=== PATIENT | female | born 1950 | race Caucasian/White ===

== ENCOUNTER 2022-06-23 12:46 | Outpatient (CLI) | payer MEDICARE, SELFPAY ==
--- NOTE | 2022-06-23 13:00 | CRLHL7_ITS ---
For Patients: As a result of the Century Cures Act, medical imaging exams and procedure reports are released immediately into your electronic medical record. You may view this report before your referring provider. If you have questions, please contact your health care provider. DXA BONE MINERAL DENSITY STUDY Current height (in): 61.0. Weight (lb): 117.0. Menopause age: 50. Ethnicity: White. Reason for exam: Postmenopausal. History of lymphoma. 1. Have you had a previous hip or vertebral fracture? No. 2. Have you had any fractures during your adult life which did not result from significant trauma (e.g., auto accident)? No. 3. Did either of your parents have a hip fracture? No. 4. Do you smoke? No. 5. Have you ever taken Glucocorticoids? No. 6. Do you have rheumatoid arthritis? No. 7. Do you have secondary osteoporosis? No. 8. Do you drink 3 or more alcoholic drinks per day? No. 9. Are you being treated for osteoporosis? No. 10. Have you ever taken any of the following medications: Actonel, Evista, Fosamax, Miacalcin, Reclast, Boniva, Forteo, HRT (i.e. estrogen/hormone therapy), Protelos, Prolia, Vitamin D, Calcium, other ??? please specify. ANSWER: Yes, vitamin D. 11. Do you have any of the following medical conditions: Anorexia or bulimia, asthma or emphysema, end stage renal disease, hyperparathyroidism, any seizure disorders, cancer, inflammatory bowel diseases, hysterectomy, other ??? please specify. ANSWER: Yes, cancer, hysterectomy. 12. What was your maximum height (inches)? 61. 13. Do you perform weight bearing exercise regularly? Yes. 14. Do you regularly consume dairy products? Yes. 15. Do you drink caffeinated beverages? Yes. If female: 16. At what age did your period start? 13. 17. Are you premenopausal? No. 18. How many full term pregnancies have you had? 2. 19. Have you ever missed your period for more than 6 months in a row (not including or menopause)? No. TECHNIQUE: Bone mineral density study was performed using the [employer]. FINDINGS: The results of the study expressed as bone mineral density (BMD) are as follows: Lumbar spine L1 to L4: BMD: 1.114 g/cm2. T-score: 0.6. Z-score: 2.8. Neck Left: BMD: 0.816 g/cm2. T-score: -0.3. Z-score: 1.6. Right: BMD: 0.860 g/cm2. T-score: 0.1. Z-score: 2.0. Total Left: BMD: 0.927 g/cm2. T-score: -0.1. Z-score: 1.5. Right: BMD: 0.938 g/cm2. T-score: -0.0. Z-score: 1.6. IMPRESSION: Normal bone density. Alton Bates M.D. Diagnostic Radiologist [email or web address] Transcribed: 8:44 a.m. DW/Dictated by: Alton Bates MD @ 06/24/2022 7:56:00 AM (Electronically Signed)
[2022-06-23 13:49] LABS: Creatinine* 0.8 mg/dL (0.5-1.5); Estimated Glomerular Filt Rate 78 ml/min
--- NOTE | 2022-06-23 14:00 | CRLHL7_ITS ---
For Patients: As a result of the Century Cures Act, medical imaging exams and procedure reports are released immediately into your electronic medical record. You may view this report before your referring provider. If you have questions, please contact your health care provider. Indication: NON-HODGKINS LYMPHOMA Technique: Postcontrast CT chest, abdomen and pelvis. Oral water. 54 cc Isovue 370 intravenous contrast. Please note that all CT scans at this facility use dose modulation, iterative reconstruction, and/or weight-based dosing when appropriate to reduce radiation dose to as low as reasonably achievable. Comparison: 02/07/2019 Findings: In the chest, increased bulky adenopathy is present. Enlarged left thoracic inlet lymph node noted. Numerous enlarged mediastinal and bilateral hilar lymph nodes. Bilateral axillary adenopathy, right greater than left. Lymph nodes in the chest measure up to 2.1 cm. No aortic dissection or pulmonary embolism. Small hiatal hernia measuring 1.8 cm. Bulky adenopathy in the paraesophageal region measuring up to 1.9 cm. Dense breast tissue appears normal. No fracture or destructive osseous lesion. Pulmonary nodules are present bilaterally. The largest lymph nodes are located within the left lower lobe measuring 5 millimeters and within the right middle lobe measuring 7 millimeters. No pleural effusion or infiltrate. In the abdomen, bulky retroperitoneal adenopathy has increased since the prior study. The largest lymph nodes measure up to approximately 2.8 cm. No intrahepatic mass. No calcified gallstones. Spleen is normal in size. Incidental splenule. Adrenal glands normal. Multiple bilateral renal cortical cysts. No hydronephrosis. No bowel obstruction. Stomach appears normal. In the pelvis, bulky pelvic sidewall adenopathy noted. Largest lymph node measures 2.1 cm. Adenopathy has increased. Bilateral inguinal adenopathy. Bladder normal. No pelvic free fluid or free air. No abscess. No bowel obstruction. No fracture. Degenerative changes. Impression: Increased bulky adenopathy in the chest, abdomen and pelvis. Bilateral suspicious pulmonary nodules measuring up to 7 millimeters. Please note that all CT scans at this facility use dose modulation, iterative reconstruction, and/or weight-based dosing when appropriate to reduce radiation dose to as low as reasonably achievable. Dictated by Alton Bates MD @ 06/24/2022 8:20:14 AM (Electronically Signed)
--- NOTE | 2022-06-23 14:30 | CRLHL7_ITS ---
For Patients: As a result of the Century Cures Act, medical imaging exams and procedure reports are released immediately into your electronic medical record. You may view this report before your referring provider. If you have questions, please contact your health care provider. INDICATION: Non-Hodgkin`s lymphoma COMPARISON: 02/07/2019 TECHNIQUE: A CT volumetric acquisition was performed of the neck during intravenous infusion of 54 cc Isovue 370 nonionic intravenous contrast. Please note that all CT scans at this facility use dose modulation, iterative reconstruction, and/or weight-based dosing when appropriate to reduce radiation dose to as low as reasonably achievable. FINDINGS: The brain parenchyma appears normal. No enhancing lesion. The orbits are within normal limits clear paranasal sinuses. Normal middle ear cavities and clear mastoid air cells. Normal vallecular and piriform sinuses. Normal thyroid. Epiglottis unremarkable. Normal salivary glands. Bilateral cervical adenopathy involving the anterior and posterior triangles and extending to the supraclavicular regions bilaterally as well as the thoracic inlet. Lymph nodes measure up to 2.2 cm and have increased in size compared to the prior exam. No fracture is present. Degenerative changes are noted. No fracture. IMPRESSION: Bilateral cervical adenopathy which has progressed compared to the prior examination. Please note that all CT scans at this facility use dose modulation, iterative reconstruction, and/or weight-based dosing when appropriate to reduce radiation dose to as low as reasonably achievable. Dictated by Alton Bates MD @ 06/24/2022 8:46:10 AM (Electronically Signed)
== END 2022-06-23 12:47 | disposition home or self-care (01) ==
LOC: RAD 12:47
PROVIDERS: PCP Family Medicine; Visit Provider Internal Medicine Hematology & Oncology
DX: C85.90 Non-Hodgkin lymphoma, unspecified, unspecified site (principal); R91.8 Other nonspecific abnormal finding of lung field; C50.412 Malignant neoplasm of upper-outer quadrant of left female breast; C83.01 Small cell B-cell lymphoma, lymph nodes of head, face, and neck; Z78.0 Asymptomatic menopausal state
CPT/HCPCS: 36415; 70491; 71260; 74177; 77080; 82565; Q9967

== ENCOUNTER 2023-08-10 10:53 | Outpatient (CLI) | payer MEDICARE, SELFPAY | END 2023-08-10 10:54 | disposition home or self-care (01) | LOC: LKVREF 10:56 | PROVIDERS: PCP Family Medicine; Visit Provider Family Medicine | DX: Z00.00 Encounter for general adult medical examination without abnormal findings (principal); I10 Essential (primary) hypertension; C85.90 Non-Hodgkin lymphoma, unspecified, unspecified site; R53.83 Other fatigue | CPT/HCPCS: 80053; 80061 ==

== ENCOUNTER 2024-08-13 10:33 | Outpatient (CLI) | payer MEDICARE, SELFPAY | END 2024-08-13 10:34 | disposition home or self-care (01) | PROVIDERS: PCP Family Medicine; Visit Provider Family Medicine | DX: I10 Essential (primary) hypertension (principal); R53.83 Other fatigue; C85.90 Non-Hodgkin lymphoma, unspecified, unspecified site; Z78.0 Asymptomatic menopausal state | CPT/HCPCS: 80053; 80061; 84443 ==

== ENCOUNTER 2024-09-03 14:26 | Outpatient (CLI) | payer MEDICARE, SELFPAY ==
--- NOTE | 2024-09-03 15:00 | CRLHL7_ITS ---
For Patients: As a result of the 21st Century Cures Act, medical imaging exams and procedure reports are released immediately into your electronic medical record. You may view this report before your referring provider. If you have questions, please contact your health care provider. INDICATIONS: Lymphoma, non-Hodgkin`s, left breast. TECHNIQUE: CT chest, abdomen and pelvis acquired with 75 cc of Isovue 370 IV contrast. COMPARISON: CT chest, abdomen and pelvis with contrast 06/23/2022 and 02/07/2019. FINDINGS: Chest: No pleural or pericardial effusions. Supraclavicular, axillary, mediastinal and hilar lymphadenopathy is again demonstrated. Left supraclavicular node on image 15 of series 2 is 2.1 x 1.8 cm and was 2 x 1.7 cm, not significantly changed. Multiple additional enlarged nodes have also not significantly changed. Aortic atherosclerosis. Thoracic aorta and main pulmonary arteries are normal in caliber. Heart size is within normal limits. Soft tissues of the thoracic wall are unremarkable/unchanged. No pneumothorax. Central airways are patent. Left lower lobe 5 mm nodule on image 33 of series 2 is unchanged. Stable 5 mm left lower lobe nodule on image 63. Stable 4 mm left lower lobe nodule on image 71. Stable 7 mm right middle lobe nodule on image 70. Stable 4 mm right lower lobe nodule on image 62. Stable 3 mm right lower lobe nodule on image 44. Stable 3 mm right upper lobe nodule on image 22. No new nodules or acute airspace disease. Abdomen: Liver, spleen, pancreas and adrenal glands are unremarkable. No calcified gallstones or biliary ductal dilatation. Bilateral renal cysts, as before. Punctate nonobstructing right renal stones. No bowel obstruction or acute inflammatory change of the GI tract. Multiple enlarged retroperitoneal nodes with uplifting of the IVC and aorta are again demonstrated. Largest node in the left para-aortic region measuring 2.8 cm on image 158 is unchanged. No free fluid. No abdominal aortic aneurysm. Pelvis: Bladder as imaged is unremarkable. Pelvic portions of the GI tract are unremarkable. Pelvic sidewall lymphadenopathy has also not significantly changed. No free fluid. Bone windows: Degenerative changes spine and pelvis. No acute or suspicious abnormality. IMPRESSION: 1. Lymphadenopathy in the chest, abdomen and pelvis has not significantly changed. 2. Stable bilateral subcentimeter pulmonary nodules. 3. No acute abnormality in the chest, abdomen or pelvis. Dictated by Cristian Richards MD @ 09/04/2024 12:35:23 PM Please note that all CT scans at this facility use dose modulation, iterative reconstruction, and/or weight-based dosing when appropriate to reduce radiation dose to as low as reasonably achievable. Dictated by: Cristian Richards MD @ 09/04/2024 12:35:45 (Electronically Signed)
--- NOTE | 2024-09-03 15:30 | CRLHL7_ITS ---
For Patients: As a result of the Century Cures Act, medical imaging exams and procedure reports are released immediately into your electronic medical record. You may view this report before your referring provider. If you have questions, please contact your health care provider. INDICATION: Lymphoma follow-up. TECHNIQUE: CT of the neck soft tissues performed with IV contrast. Contrast: 75 cc Isovue 370. COMPARISON: CT neck soft tissues 06/23/2022. FINDINGS: Redemonstration of extensive cervical chain lymphadenopathy overall stable in appearance since the previous examination. The largest lymph node noted in the left supraclavicular region measuring 1.5 cm in short axis diameter which is unchanged. Partially visualized mediastinal and axillary lymphadenopathy appears unchanged. The nasopharynx, oropharynx and hypopharynx appear unremarkable. The supraglottic, glottic and infraglottic spaces are preserved. The parotid and submandibular glands appear unremarkable. The thyroid gland is normal. The visualized major vascular structures appear intact. The visualized intracranial components appear grossly intact. Visualized orbits and contents appear unremarkable. The paranasal sinuses are clear as visualized. Lung apices are clear. Mild spondylosis of the cervical spine. Stable 6 mm left lower lobe nodule along the major fissure. IMPRESSION: 1. Stable lymphadenopathy in keeping with patient`s reported history of lymphoma. 2. No new or progressive lymphadenopathy since previous exam 06/23/2022. Please note that all CT scans at this facility use dose modulation, iterative reconstruction, and/or weight-based dosing when appropriate to reduce radiation dose to as low as reasonably achievable. Dictated by Brenden Willoughby MD @ 09/03/2024 5:31:40 PM (Electronically Signed)
== END 2024-09-03 14:27 | disposition home or self-care (01) ==
LOC: CT 14:28
PROVIDERS: PCP Family Medicine; Visit Provider Internal Medicine Hematology & Oncology
DX: R59.9 Enlarged lymph nodes, unspecified (principal); C83.01 Small cell B-cell lymphoma, lymph nodes of head, face, and neck; C50.412 Malignant neoplasm of upper-outer quadrant of left female breast
CPT/HCPCS: 70491; 71260; 74177; Q9967

== ENCOUNTER 2024-09-19 12:34 | Outpatient (CLI) | payer MEDICARE, SELFPAY ==
--- NOTE | 2024-09-19 13:00 | CRLHL7_ITS ---
For Patients: As a result of the Century Cures Act, medical imaging exams and procedure reports are released immediately into your electronic medical record. You may view this report before your referring provider. If you have questions, please contact your health care provider. XR DXA BONE MINERAL DENSITY (BMD) Current height (in): 61.0. Weight (lb): 115.0. Menopause age: 50. Ethnicity: White. Reason for exam: Asymptomatic menopausal state. 1. Have you had a previous hip or vertebral fracture? No. 2. Have you had any fractures during your adult life which did not result from significant trauma (e.g., auto accident)? No. 3. Did either of your parents have a hip fracture? No. 4. Do you smoke? No. 5. Have you ever taken Glucocorticoids? No. 6. Do you have rheumatoid arthritis? No. 7. Do you have secondary osteoporosis? No. 8. Do you drink 3 or more alcoholic drinks per day? No. 9. Are you being treated for osteoporosis? No. 10. Have you ever taken any of the following medications: Actonel, Evista, Fosamax, Miacalcin, Reclast, Boniva, Forteo, HRT (i.e. estrogen/hormone therapy), Protelos, Prolia, Vitamin D, Calcium, other ??? please specify. ANSWER: Yes, vitamin D. 11. Do you have any of the following medical conditions: Anorexia or bulimia, asthma or emphysema, end stage renal disease, hyperparathyroidism, any seizure disorders, cancer, inflammatory bowel diseases, hysterectomy, other ??? please specify. ANSWER: Yes, cancer, hysterectomy. 12. What was your maximum height (inches)? 61. 13. Do you perform weight bearing exercise regularly? Yes. 14. Do you regularly consume dairy products? Yes. 15. Do you drink caffeinated beverages? Yes. 16. At what age did your period start? 13. 17. Are you premenopausal? No. 18. How many full-term pregnancies have you had? 2. 19. Have you ever missed your period for more than 6 months in a row (not including or menopause)? No. TECHNIQUE: Bone mineral density study was performed using the [employer]. FINDINGS: The results of the study expressed as bone mineral density (BMD) are as follows: Lumbar spine L1 to L4: BMD: 1.082 g/cm2. T-score: 0.3. Z-score: 2.7 Neck Left: BMD: 0.818 g/cm2. T-score: -0.3. Z-score: 1.8 Right: BMD: 0.833 g/cm2. T-score: -0.1. Z-score: 1.9 Total Left: BMD: 0.969 g/cm2. T-score: 0.2. Z-score: 2.0 Right: BMD: 1.000 g/cm2. T-score: 0.5. Z-score: 2.2 IMPRESSION: Normal bone density. *Comparison exams done prior to 01/2020 were performed on different unit, [employer]. COMPARISON: Compared with scan of 06/23/2022, the bone mineral density has decreased by 2.8 percent at the spine and increased by 5.6 percent at the hip. Wendy Fowler M.D. Diagnostic/Breast Radiologist [email or web address] Transcribed: 10:03 am DW/Dictated by: Wendy Fowler MD @ 09/20/2024 8:44:00 AM (Electronically Signed)
== END 2024-09-19 12:35 | disposition home or self-care (01) ==
LOC: RAD 12:36
PROVIDERS: PCP Family Medicine; Visit Provider Family Medicine
DX: Z78.0 Asymptomatic menopausal state (principal); Z98.890 Other specified postprocedural states; C85.90 Non-Hodgkin lymphoma, unspecified, unspecified site
CPT/HCPCS: 77080

== ENCOUNTER 2025-04-21 12:43 | Day surgery (SDC) | payer MEDICARE, SELFPAY ==
[2025-04-21 13:13] VITALS: BP 183/90; PULSE 71; RESP 16; TEMP 36.6; O2SAT 99; BMI 48.7
[2025-04-21] MEDS: ETHYL CHLORIDE 1 APPLICATION 1 APPLIC TOPICAL (14:00)
[2025-04-21] MEDS: LIDOCAINE 1%-EPI 1:100,000 20 ML INFILTRATI (14:02)
[2025-04-21] MEDS: BUPIVACAINE 0.5% 30 ML INJECTION (14:02)
[2025-04-21 14:14] VITALS: BP 198/91; PULSE 79; RESP 16
[2025-04-21 14:20] VITALS: BP 182/88; PULSE 68; RESP 16
[2025-04-21 14:25] VITALS: BP 170/80; PULSE 69; RESP 16
--- NOTE | 2025-04-21 14:28 | P.ORPRC_ITS ---
Procedure Note Date of procedure: 04/21/25 Procedure: PREOPERATIVE DIAGNOSIS: 1. Left thumb flexor tenosynovitis - trigger thumb POSTOPERATIVE DIAGNOSIS: 1. Left thumb flexor tenosynovitis - trigger thumb PROCEDURE: 1. Left thumb flexor tendon sheath open release (A1 crow) SURGEON: Bravo Ordonez MD. POST TENSIONING IRONWORKER: None ANESTHESIA: Local anesthetic 4ml via 50:50 mixture of 1% Lidocaine with epi and 0.5% marcaine plain EBL: 2ml IMPLANTS: None TOURNIQUET: None COMPLICATIONS: None evident INDICATIONS: The patient is a pleasant 75-year-old female who has experienced left thumb catching/triggering for number of months. It has progressively gotten worse. Given the failure of nonoperative management, and how this affects daily life, surgery was recommended. DESCRIPTION OF PROCEDURE: Following a thorough discussion of risks, benefits, and alternatives consent was obtained and the operative digit(s) was marked. The patient was brought to the operating room and placed supine on the operating table. Local anesthesia induction was undertaken in preop holding. No antibiotics were administered as this was planned to be a local case only. Proper time-out was performed identifying proper patient, site, and procedure. The operative extremity was prepped and draped in the appropriate sterile fashion using ChloraPrep. An incision was made on the palmar surface of the hand overlying the MCP joint region of the appropriate digit(s) respecting the palmar creases being cautious not to cross these perpendicularly. Sharp incision through the skin, and blunt dissection through subcutaneous tissue allowing protection of crossing neurologic structures. The A1 crow was visualized directly. It was incised sharply with a 15 blade. It was released completely from its distal to proximal extent under direct visualization. The tendon was inspected and found to be mildly striated consistent with some friction. Otherwise, it was intact. The tendon was removed out of the wound, and further inspected. The patient was asked to manually flex and extend the digits and showed no further catching. The catching which was visualized after tourniquet inflation, was no longer evident with reproduction of a manual fist and relaxation. Closure was performed with 4-O nylon in interrupted fashion. Soft dressings were applied, and the patient was transferred to the recovery room in stable condition. PLAN: 1. Encourage elevation of the operative extremity. 2. Range of motion and icing of the fingers and hand/wrist as tolerated/needed. 3. Ibuprofen/acetaminophen and/or oxycodone as needed for pain control. 4. Follow up with PA visit in 12-16 days for wound check and suture removal.
[2025-04-21 14:36] VITALS: BP 180/101; PULSE 72; RESP 16; TEMP 36.6; O2SAT 96
[2025-04-21 14:38] VITALS: BP 180/101; PULSE 72; RESP 16; TEMP 36.6
== END 2025-04-21 14:39 | disposition home or self-care (01) ==
PROVIDERS: PCP Family Medicine; Visit Provider Orthopaedic Surgery Sports Medicine
PROC: (CPT 26055; principal; 2025-04-21 16:30)
DX: M65.312 Trigger thumb, left thumb (principal); M65.842 Other synovitis and tenosynovitis, left hand
CPT/HCPCS: 26055; J0665

== ENCOUNTER 2025-08-26 11:51 | Outpatient (CLI) | payer MEDICARE, SELFPAY | END 2025-08-26 11:52 | disposition home or self-care (01) | LOC: LKVREF 11:53 | PROVIDERS: PCP Family Medicine; Visit Provider Family Medicine | DX: I10 Essential (primary) hypertension (principal); C85.90 Non-Hodgkin lymphoma, unspecified, unspecified site; R53.83 Other fatigue | CPT/HCPCS: 80053; 80061 ==